=== PATIENT | female | born 1980 | race Caucasian/White ===

== ENCOUNTER 2020-07-31 08:51 | Emergency (ER) | payer OTHER, SELFPAY ==
--- NOTE | ~2020-07-31 | CT_ITS ---
EXAMINATION: CT ABDOMEN AND PELVIS WITHOUT CONTRAST CLINICAL INFORMATION: Severe left flank pain COMPARISON: None TECHNIQUE: Multidetector volumetric imaging was performed from the superior aspect of the liver through the pubic symphysis. Sagittal and coronal reformatted images were obtained on the technologist's workstation. This CT examination was performed using dose optimization techniques as appropriate, variously including the following: *Automated exposure control *Adjustment of mA and/or kV according to patient size (this includes techniques or standardized protocols for targeted exams where dose is matched to indication/reason for exam; i.e. extremities or head) *Use of iterative reconstruction technique DLP: 1212 mGy-cm FINDINGS: LUNG BASES: The visualized lung bases are unremarkable. LIVER, GALLBLADDER, AND BILIARY TREE: Marked diffuse fatty infiltration of the liver. The gallbladder is surgically absent. PANCREAS: Unremarkable. SPLEEN: Unremarkable. ADRENAL GLANDS: Unremarkable. KIDNEYS AND URETERS: There is a 2 mm nonobstructing calculus in the lower pole of the left kidney. There is an exophytic cyst at the posterior aspect of the lower pole measuring 1.6 cm measuring simple fluid density does not require additional follow-up. BLADDER: Unremarkable. GASTROINTESTINAL TRACT: The small and large bowel are unremarkable. The appendix is unremarkable. ABDOMINAL WALL: Small fat-containing periumbilical hernia. LYMPH NODES: Normal. VASCULAR: Unremarkable. PELVIC VISCERA: There is an intrauterine device in place. There is a simple appearing left adnexal cyst measuring 3.4 cm. Evaluation is limited due to the absence of intravenous contrast. OSSEOUS STRUCTURES: Unremarkable. CT/CT abdomen pelvis wo con IMPRESSION: No focal inflammatory process or obstruction. There is a left adnexal 3.4 cm simple appearing cyst which is not adequately characterized on this noncontrast study for which further evaluation with ultrasound is recommended. There is a 2 mm nonobstructing calculus in the lower pole of the left kidney. Fused fatty infiltration of the liver.
--- NOTE | ~2020-07-31 | US_ITS ---
EXAMINATION: US PELVIS ULTRASOUND WITH DOPPLER CLINICAL INFORMATION: Severe left flank and left pelvic pain. Left adnexal cyst on recent imaging. COMPARISON: CT abdomen and pelvis without contrast 06/16/2020, remote prior pelvic ultrasound 02/10/2006. TECHNIQUE: Ultrasound of the pelvis is performed using both transabdominal and transvaginal transducers along with Doppler. Transvaginal imaging is performed due to inadequate visualization transabdominally. FINDINGS: Uterus: The uterus is anteverted and measures 9.8 x 5.2 x 6.2 cm. The double wall endometrial thickness is 5 mm. There is an IUD in position. No fluid in uterine cavity. No visible fibroid. Adnexa: Both ovaries are visualized. There is normal color flow to the adnexa and low resistance arterial waveforms with bilateral venous flow obtained on Doppler. There is no ovarian torsion. There is no pelvic ascites or fluid collection. Right ovary measures 3.7 x 2.1 x 2.5 cm. Left ovary measures 5.2 x 2.2 x 4.6 cm. There is a simple cyst from the left ovary measuring 4.4 x 3.4 x 3.2 cm. US/US transvaginal IMPRESSION: 1. Uterus: IUD in position. No fluid in uterine cavity. No fibroid. 2. Adnexa: Simple left ovarian cyst 4.4 cm. No torsion. No ascites.
--- NOTE | ~2020-07-31 | US_ITS ---
EXAMINATION: US PELVIS ULTRASOUND WITH DOPPLER CLINICAL INFORMATION: Severe left flank and left pelvic pain. Left adnexal cyst on recent imaging. COMPARISON: CT abdomen and pelvis without contrast 06/16/2020, remote prior pelvic ultrasound 02/10/2006. TECHNIQUE: Ultrasound of the pelvis is performed using both transabdominal and transvaginal transducers along with Doppler. Transvaginal imaging is performed due to inadequate visualization transabdominally. FINDINGS: Uterus: The uterus is anteverted and measures 9.8 x 5.2 x 6.2 cm. The double wall endometrial thickness is 5 mm. There is an IUD in position. No fluid in uterine cavity. No visible fibroid. Adnexa: Both ovaries are visualized. There is normal color flow to the adnexa and low resistance arterial waveforms with bilateral venous flow obtained on Doppler. There is no ovarian torsion. There is no pelvic ascites or fluid collection. Right ovary measures 3.7 x 2.1 x 2.5 cm. Left ovary measures 5.2 x 2.2 x 4.6 cm. There is a simple cyst from the left ovary measuring 4.4 x 3.4 x 3.2 cm. US/US pelvic complete IMPRESSION: 1. Uterus: IUD in position. No fluid in uterine cavity. No fibroid. 2. Adnexa: Simple left ovarian cyst 4.4 cm. No torsion. No ascites.
--- NOTE | ~2020-07-31 | US_ITS ---
EXAMINATION: US PELVIS ULTRASOUND WITH DOPPLER CLINICAL INFORMATION: Severe left flank and left pelvic pain. Left adnexal cyst on recent imaging. COMPARISON: CT abdomen and pelvis without contrast 06/16/2020, remote prior pelvic ultrasound 02/10/2006. TECHNIQUE: Ultrasound of the pelvis is performed using both transabdominal and transvaginal transducers along with Doppler. Transvaginal imaging is performed due to inadequate visualization transabdominally. FINDINGS: Uterus: The uterus is anteverted and measures 9.8 x 5.2 x 6.2 cm. The double wall endometrial thickness is 5 mm. There is an IUD in position. No fluid in uterine cavity. No visible fibroid. Adnexa: Both ovaries are visualized. There is normal color flow to the adnexa and low resistance arterial waveforms with bilateral venous flow obtained on Doppler. There is no ovarian torsion. There is no pelvic ascites or fluid collection. Right ovary measures 3.7 x 2.1 x 2.5 cm. Left ovary measures 5.2 x 2.2 x 4.6 cm. There is a simple cyst from the left ovary measuring 4.4 x 3.4 x 3.2 cm. US/US pelvic ovarian doppler IMPRESSION: 1. Uterus: IUD in position. No fluid in uterine cavity. No fibroid. 2. Adnexa: Simple left ovarian cyst 4.4 cm. No torsion. No ascites.
[2020-07-31 09:33] VITALS: BP 165/76; PULSE 61; RESP 16; TEMP 36.8; O2SAT 98; BMI 44.9
--- NOTE | 2020-07-31 09:51 | ED_ITS ---
HPI - Abdominal Pain General Chief Complaint: Abdominal Pain Stated Complaint: PAIN FROM OVARIES TO BACK Time Seen by Provider: 07/31/20 09:39 Source: patient Mode of arrival: ambulatory Limitations: no limitations History of Present Illness HPI narrative: 40 y/o female , with IUD in placed x5 years, morbid obesity who presents to the ER with acute onset of severe left flank and LLQ stabbing pain that started this morning when she was at work. She reports when it came on it was 10/10 and keeled her over. She vomited x1. She took 2 motrin and since pain has improved to a 2/3 out of 10. She denies urinary symptoms. She denies fever or chills. Denies chance of . No history of kidney stones. MD elicited complaint: abdominal pain and flank pain Onset (ago): hour(s) (2) Pain Consistency: constant Location: LLQ and L flank Severity: severe Quality: stabbing and sharp Radiation: L flank and other (left hip) Migration to: no migration Exacerbating factors: movement Relieving factors: medication and rest Associated symptoms: nausea and vomiting Related Data Allergies Allergy/AdvReac Type Severity Reaction Status Date / Time acetaminophen [From PERCOCET] Allergy Unknown ANAPHYLAXIS Unverified 11/14/19 17:09 oxycodone [From PERCOCET] Allergy Unknown ANAPHYLAXIS Unverified 11/14/19 17:09 Review of Systems Review of Systems Constitutional: No Fever, No Chills ENT/Mouth: No sore throat, No Rhinorrhea, No Swallowing Difficulty Cardiovascular: No Chest Pain, No SOB Respiratory: No Cough, No Sputum, No Wheezing, No dyspnea Gastrointestinal: + Nausea, + Vomiting, No Diarrhea, + abdominal Pain, No Hematochezia, No Melena Genitourinary: No Dysuria, No Urinary Frequency, No Hematuria, No vaginal discharge Musculoskeletal: No joint pain, No Myalgias Skin: No Skin Lesions, No rash Neuro: No Weakness, No Numbness, No Dizziness, No Headache Psych: No Anxiety/Panic, No Depression Heme/Lymph: No Bruising, No Lymphadenopathy Physical Exam Vital Signs: Vital Signs: Last Vital Signs Temp 98.3 F 07/31/20 13:25 Pulse 54 07/31/20 13:25 Resp 16 07/31/20 13:25 BP 166/76 H 07/31/20 13:25 Pulse Ox 99 06/04/21 13:25 Body Mass Index 44.9 Appearance: Alert. Oriented X3. No acute distress. Eyes: Pupils equal, round and reactive to light. ENT: Pharynx normal. Neck: Normal inspection. Neck supple. CVS: Normal heart rate and rhythm. Pulses normal. Respiratory: No respiratory distress. Breath sounds normal. Abdomen: Obese, Soft with mild LLQ tenderness to deep palpation, no rebound or guarding. +BS x4. No CVA tenderness Skin: Skin warm and dry. Normal skin color. Normal skin turgor. No rashes. Extremities: No lower extremity edema. Neuro: Oriented X 3. No motor deficit. No sensory deficit. Course Course Course Narrative: 40 y/o female presenting with severe LLQ pain radiating to her left flank associated with vomitingt, now much improved. Concern for possible kidney stone, ovarian torsion, diverticulitis, UTI/pyelo. Will get UA, Upreg, and labs. Will get CT scan for further evaluation. Reevaluation(s) Reevaluation #1: UA and labs are unremarkable. CT scan showing left ovarian cyst. Will get pelvic U/S to r/o torsion. Reevaluation #2: Pelvic U/S showing 4.4 cm cyst without torsion. Results were discussed with patient and risk for torsion and need for close [facility] follow up. She will call her OB at [facility] today to arrange follow up. She is pain free at this time and is stable for discharge home. MDM - Abdominal Pain Lab Data Result diagrams: 07/31/20 10:07 07/31/20 10:07 Labs: Lab Results 07/31/20 07/31/20 07/31/20 Range/Units 10:07 10:07 10:07 WBC 7.6 (4.8-10.8) X10*3/uL RBC 4.73 (4.20-5.50) X10*6/uL Hgb 12.5 (12.0-16.0) g/dl Hct 39.1 (37-47) % MCV 82.7 (80-98) fL MCH 26.4 L (27.0-33.0) pg MCHC 32.0 (31.0-35.0) g/dl RDW 14.0 (11.0-16.0) % Plt Count 255 (160-400) X10*3/uL MPV 10.6 (9.4-12.3) fL Immature Gran % (Auto) 0.3 (0.0-0.4) % Neut % (Auto) 72.6 (45-73) % Lymph % (Auto) 17.2 L (20-40) % [place] % (Auto) 6.0 (2-11) % Eos % (Auto) 3.1 (0-4) % Baso % (Auto) 0.8 (0-2) % Lymph # (Auto) 1.3 (1.2-4.9) X10*3/uL [place] # (Auto) 0.5 (0.1-1.2) X10*3/uL Eos # (Auto) 0.2 (0.0-0.4) X10*3/uL Baso # (Auto) 0.1 (0.0-0.2) X10*3/uL Abs Immat Gran (auto) 0.02 (0.00-0.03) X10*3/uL Absolute Neuts (auto) 5.5 (2.0-8.3) X10*3/uL Absolute Nucleated RBC 0.000 (0.0-0.012) X10*3/uL Nucleated RBC % (auto) 0.0 (0.0-0.2) /100WBC Sodium 140 (135-145) mmol/L Potassium 4.7 (3.3-5.1) mmol/L Chloride 110 H (96-108) mmol/L Carbon Dioxide 23 (22-29) mmol/L Anion Gap 12 (12-20) BUN 11 (9-16) mg/dL Creatinine 0.67 (0.5-1.4) mg/dL Estim Creat Clear Calc 149.4 Estimated GFR > 60 Random Glucose 106 (60-115) mg/dL Calcium 9.0 (8.4-10.2) mg/dL Urine Color YELLOW Urine Appearance CLEAR Urine pH 6.0 (5.0-8.0) Ur Specific [place] 1.020 (1.005-1.025) Urine Protein NEG (NEG-TRACE) MG/DL Urine Glucose (UA) NEG (NEG) MG/DL Urine Ketones NEG (NEG) MG/DL Urine Blood 2+ H (NEG) Urine Nitrite NEG (NEG) Ur Leukocyte Esterase NEG (NEG) Urine RBC 15-29 H (0) /HPF Urine WBC 0-2 (0-4) /HPF Ur Squamous Epith Cells 1+ /LPF Urine Bacteria NONE /LPF Urine Test (NEGATIVE) 07/31/20 Range/Units 10:07 WBC (4.8-10.8) X10*3/uL RBC (4.20-5.50) X10*6/uL Hgb (12.0-16.0) g/dl Hct (37-47) % MCV (80-98) fL MCH (27.0-33.0) pg MCHC (31.0-35.0) g/dl RDW (11.0-16.0) % Plt Count (160-400) X10*3/uL MPV (9.4-12.3) fL Immature Gran % (Auto) (0.0-0.4) % Neut % (Auto) (45-73) % Lymph % (Auto) (20-40) % [place] % (Auto) (2-11) % Eos % (Auto) (0-4) % Baso % (Auto) (0-2) % Lymph # (Auto) (1.2-4.9) X10*3/uL [place] # (Auto) (0.1-1.2) X10*3/uL Eos # (Auto) (0.0-0.4) X10*3/uL Baso # (Auto) (0.0-0.2) X10*3/uL Abs Immat Gran (auto) (0.00-0.03) X10*3/uL Absolute Neuts (auto) (2.0-8.3) X10*3/uL Absolute Nucleated RBC (0.0-0.012) X10*3/uL Nucleated RBC % (auto) (0.0-0.2) /100WBC Sodium (135-145) mmol/L Potassium (3.3-5.1) mmol/L Chloride (96-108) mmol/L Carbon Dioxide (22-29) mmol/L Anion Gap (12-20) BUN (9-16) mg/dL Creatinine (0.5-1.4) mg/dL Estim Creat Clear Calc Estimated GFR Random Glucose (60-115) mg/dL Calcium (8.4-10.2) mg/dL Urine Color Urine Appearance Urine pH (5.0-8.0) Ur Specific [place] (1.005-1.025) Urine Protein (NEG-TRACE) MG/DL Urine Glucose (UA) (NEG) MG/DL Urine Ketones (NEG) MG/DL Urine Blood (NEG) Urine Nitrite (NEG) Ur Leukocyte Esterase (NEG) Urine RBC (0) /HPF Urine WBC (0-4) /HPF Ur Squamous Epith Cells /LPF Urine Bacteria /LPF Urine Test NEGATIVE (NEGATIVE) Discharge Plan Discharge Clinical Impression: Ovarian cyst Qualifiers: Laterality: left Qualified Code(s): N83.202 - Unspecified ovarian cyst, left side Patient Disposition: Home, Self-Care Instructions: Ovarian Cyst (ED) Additional Instructions: Your ultrasound showed a 4.4 cm ovarian cyst. A cyst of this size is at risk for torsion or twisting. If you have recurrent severe pain you need to come back to the ER right away. Follow up with your [facility]. The cyst needs to be monitored. Take Motrin and/or Tylenol as needed for pain. Stand Alone Forms: Work/School Release Discharge Date/Time: 07/31/20 14:03 [facility] Past Medical History Attestation statement: The following information was validated with the patient. Medical History Asthma Surgical History (Updated 07/31/20 @ 09:36 by Regis Ragland) History of cholecystectomy Social History Social History Alcohol intake: never Patient Tobacco Use Status: Never used Tobacco Use of substances other than those prescribed or required for medical reasons: No Advance Directives: Yes Advance Directives Information Provided: Yes Advance Directives on File: No
[2020-07-31 10:15] LABS: MANUAL DIFF FLAG NO
[2020-07-31 10:16] LABS: Basophils Absolute Auto 0.1 X10*3/uL (0.0-0.2); Basophils Percent Auto 0.8 % (0-2); Eosinophils Absolute Auto 0.2 X10*3/uL (0.0-0.4); Eosinophils Percent Auto 3.1 % (0-4); Hematocrit 39.1 % (37-47); Hemoglobin 12.5 g/dl (12.0-16.0); Imm Gran Abs Auto 0.02 X10*3/uL (0.00-0.03); Imm Gran Pct Auto 0.3 % (0.0-0.4); Lymphocytes Absolute Auto 1.3 X10*3/uL (1.2-4.9); Lymphocytes Percent Auto 17.2 % (20-40); Mean Corpuscular Hemoglobin 26.4 pg (27.0-33.0); Mean Corpuscular Volume 82.7 fL (80-98); Mean Platelet Volume 10.6 fL (9.4-12.3); Monocytes Absolute Auto 0.5 X10*3/uL (0.1-1.2); Neutrophils Absolute Auto 5.5 X10*3/uL (2.0-8.3); Neutrophils Percent Auto 72.6 % (45-73); Platelet Count 255 X10*3/uL (160-400); Red Blood Count 4.73 X10*6/uL (4.20-5.50); White Blood Count 7.6 X10*3/uL (4.8-10.8)
[2020-07-31 10:17] LABS: Glucose Urine UA NEG (NEG); Leukocyte Esterase Urine NEG (NEG); Nitrite Urine NEG (NEG); Urine Blood 2+ (NEG); Urine Ketones NEG (NEG); Urine Protein NEG (NEG-TRACE)
[2020-07-31 10:19] LABS: Appearance Urine CLEAR; Color Urine YELLOW; UPreg QC Valid YES; Urine Pregnancy NEGATIVE (NEGATIVE)
[2020-07-31 10:25] LABS: Squamous Epithelial Cell Urine 1+ /LPF; WBC Urine 0-2 /HPF (0-4)
[2020-07-31 10:37] LABS: Anion Gap 12 (12-20); Blood Urea Nitrogen 11 mg/dL (9-16); Carbon Dioxide 23 mmol/L (22-29); Chloride 110 mmol/L (96-108); Creatinine Clr Calc Pharmacy 149.4; Estimated Glomerular Filt Rate > 60; Glucose Random 106 mg/dL (60-115); Potassium 4.7 mmol/L (3.3-5.1); Sodium 140 mmol/L (135-145)
[2020-07-31 11:13] VITALS: BP 170/61; PULSE 69; RESP 18; TEMP 36.9; O2SAT 98
[2020-07-31 13:25] VITALS: BP 166/76; PULSE 54; RESP 16; TEMP 36.8; O2SAT 99
== END 2020-07-31 14:03 | disposition home or self-care (01) ==
PROVIDERS: Physician Assistant; Emergency Provider Emergency Medicine Emergency Medical Services; PCP Internal Medicine
DX: N83.292 Other ovarian cyst, left side (principal); R10.32 Left lower quadrant pain; E66.01 Morbid (severe) obesity due to excess calories
CPT/HCPCS: 36415; 74176; 76830; 76856; 80048; 81001; 81025; 85025; 93975; 99284